=== PATIENT | female | born 1955 | race Caucasian/White ===

== ENCOUNTER → 2018-02-08 | Outpatient (CLI) | payer BC ==
--- NOTE | 2018-02-08 13:45 | KCIC ---
EXAM: Right breast sonogram. HISTORY: 62-year-old female presents for evaluation of nodular densities within the right breast demonstrated on a mammogram dated 01/12/2018. TECHNIQUE: Sonographic imaging of the right breast including all 4 quadrants and the retroareolar region was performed. COMPARISON: Mammogram dated 01/12/2018 and sonogram dated 2011. FINDINGS: There is a heterogeneous lobulated hypoechoic lesion with internal blood flow and slightly indistinct margins at the 9:00 position of the right breast 6 cm from the nipple, measuring 9.6 mm in maximum dimension. There is an adjacent suspected intramammary lymph node with fatty hilum measuring 6.9 mm in maximum dimension. This corresponds with the region of nodularity on the recent mammogram. There is also a more circumscribed hypoechoic lesion with internal echoes at the 9:00 position 3 cm from the nipple measuring 5.5 mm in maximum dimension. This also demonstrates slight blood flow. There is an 8.7 mm complex cyst with suspected thin internal septation at the 3:00 position 4 cm from the nipple and a 4.6 mm suspected benign corticated cystic or fibrocystic lesion at the 2:00 position 5 cm from the nipple. There are dilated ducts within the retroareolar location. No intraductal lesion is seen. IMPRESSION: 1. 9.6 mm heterogeneous lobulated lesion with internal blood flow at the 9:00 position of the right breast 6 cm from the nipple, with adjacent suspected intramammary lymph node. Sonographic guided biopsy is recommended for definitive diagnosis. 2. 5.5 mm hypoechoic lesion with slight internal blood flow at the 9:00 position 3 cm from the nipple. This may be a fibroadenoma. However, given the presence of the aforementioned indeterminate lesion 6 cm from the nipple, sonographic guided biopsy of this lesion is also recommended. 3. Benign-appearing complicated cystic and fibrocystic lesions at the 3:00 and 2:00 positions. 4. Dilated ducts within the subareolar right breast. No intraductal lesion is seen. 5. BI-RADS Category 4: Suspicious abnormality. Biopsy of lesions at the 9:00 position 6 cm from the nipple and 3 cm from the nipple, as described above, is recommended. Electronically signed by: Cecilia Pacheco MD (02/08/2018 1:43 PM) [id number]
== END | disposition home or self-care (01) ==
LOC: KCIC US 12:51
PROVIDERS: ATTEND Family Medicine
DX: N64.89 Other specified disorders of breast (principal)
CPT/HCPCS: 76641

== ENCOUNTER → 2018-06-24 | Outpatient (CLI) | payer BC ==
[~2018-06-24] VITALS: Ht 172.7 cm; Wt 68.5 kg
[~2018-06-24] MED LIST: ZOLEDRONICACID 5mg/100mlPREMIX 100 ML IV ONE
[2018-06-24 09:05] VITALS: BP 115/71
== END | disposition home or self-care (01) ==
LOC: OPS 08:36
PROVIDERS: ATTEND Family Medicine
DX: M81.0 Age-related osteoporosis without current pathological fracture (principal)
CPT/HCPCS: 96365; J3489